=== PATIENT | male | born 1975 | race Caucasian/White ===

== ENCOUNTER 2018-04-27 20:02 | Emergency (ER) | payer OTHER ==
[2018-04-27] MEDS ORDERED: NS 1,000 ML IV ONE ×2 (20:31→21:22)
[2018-04-27 20:37] LABS: PLATELET COUNT 215 10^3/uL (150-400)
--- NOTE | 2018-04-27 22:28 | EDPHY ---
H & P Time Seen by Provider: 04/27/18 20:13 HPI/ROS: CHIEF COMPLAINT: Diarrhea, fever HISTORY OF PRESENT ILLNESS: 42-year-old male presents to the emergency department by vehicle complaining of diarrhea and feeling feverish and chilled since p.m. Today. Patient has had at least 15-20 watery stools today. No blood in his stool. No back pain. He describes diffuse abdominal cramping. No recent travel. No known ill contacts. He also describes headache and diffuse body aches. Denies chest pain or difficulty breathing. Denies neck pain. Denies urinary symptoms. He has tried Imodium multiple times prior to arrival. REVIEW OF SYSTEMS: Constitutional: Subjective fevers, chills Eyes: No double or blurry vision. ENT: No sore throat. Respiratory: No cough, no shortness of breath. Cardiac: No chest pain. Gastrointestinal: Abdominal pain as above. Diarrhea. No vomiting. Genitourinary: No dysuria. Musculoskeletal: No neck or back pain. Skin: No rashes. Neurological: No headache. Past Medical/Surgical History: Negative Social History: and lives in [place] Smoking Status: Never smoked Physical Exam: General Appearance: Alert, no distress. 37.7 temperature. Nontoxic appearing. Eyes: Pupils equal and round. Extraocular motions are all intact. ENT: Mouth: Mucous membranes moist. Respiratory: No wheezing, rhonchi, or rales, lungs are clear to auscultation. Cardiovascular: Regular rate and rhythm. Gastrointestinal: Abdomen is soft. Mild tenderness with patient diffusely to palpate the abdomen. There is no rebound, guarding or masses noted. No CVA tenderness bilaterally. Neurological: Alert and oriented x 3, cranial nerves II through XII grossly intact Skin: Warm and dry, no rashes. Musculoskeletal: Nontender to palpate along the cervical, thoracic or lumbar spine. Neck is supple. Extremities: Full range of motion and no peripheral edema. Psychiatric: Patient is oriented X 3, there is no agitation. Constitutional: Initial Vital Signs Temperature (C) 37.7 C 04/27/18 20:04 Heart Rate 81 04/27/18 20:04 Respiratory Rate 18 04/27/18 20:04 Blood Pressure 100/74 04/27/18 20:04 O2 Sat (%) 96 04/27/18 20:04 O2 Delivery Mode Room Air Allergies/Adverse Reactions: No Known Allergies Allergy (Verified 04/27/18 20:06) Home Medications: Medication Instructions Recorded No Medications [NO HOME 1 ea [facility] 07/12/11 MEDICATIONS] Medical Decision Making ED Course/Re-evaluation: 42-year-old male presents to the emergency department with multiple episodes of diarrhea fever. Laboratory studies reveal normal CBC and chemistries. Patient received IV normal saline. He was feeling better. He had left abdominal cramping. He denied any pain medication including Bentyl. Because the patient has profuse diarrhea with fever, GI pathogen is pending. Patient feels comfortable being discharged home. Differential Diagnosis: Including but not limited to infectious diarrhea, viral gastroenteritis, dehydration, electrolyte abnormality - Data Points Laboratory Results: Laboratory Results 04/27/18 20:27 04/27/18 20:27 04/27/18 04/27/18 20:27 20:27 WBC 12.04 10^3/uL H 10^3/uL (3.80-9.50) RBC 4.82 10^6/uL 10^6/uL (4.40-6.38) Hgb 14.9 g/dL g/dL (13.7-17.5) Hct 41.4 % % (40.0-51.0) MCV 85.9 fL fL (81.5-99.8) MCH 30.9 pg pg (27.9-34.1) MCHC 36.0 g/dL g/dL (32.4-36.7) RDW 12.9 % % (11.5-15.2) Plt Count 215 10^3/uL 10^3/uL (150-400) MPV 9.3 fL fL (8.7-11.7) Neut % (Auto) 89.6 % H % (39.3-74.2) Lymph % (Auto) 3.2 % L % (15.0-45.0) [place] % (Auto) 6.1 % % (4.5-13.0) Eos % (Auto) 0.6 % % (0.6-7.6) Baso % (Auto) 0.2 % L % (0.3-1.7) Nucleat RBC Rel Count 0.0 % % (0.0-0.2) Absolute Neuts (auto) 10.79 10^3/uL H 10^3/uL (1.70-6.50) Absolute Lymphs (auto) 0.39 10^3/uL L 10^3/uL (1.00-3.00) Absolute Monos (auto) 0.73 10^3/uL 10^3/uL (0.30-0.80) Absolute Eos (auto) 0.07 10^3/uL 10^3/uL (0.03-0.40) Absolute Basos (auto) 0.02 10^3/uL 10^3/uL (0.02-0.10) Absolute Nucleated RBC 0.00 10^3/uL 10^3/uL (0-0.01) Immature Gran % 0.3 % % (0.0-1.1) Immature Gran # 0.04 10^3/uL 10^3/uL (0.00-0.10) RBC/WBC/PLT Morphology TNP Platelet Estimate TNP Sodium 140 mEq/L mEq/L (135-145) Potassium 4.0 mEq/L mEq/L (3.3-5.0) Chloride 104 mEq/L mEq/L (97-110) Carbon Dioxide 23 mEq/l mEq/l (22-31) Anion Gap 13 mEq/L mEq/L (8-16) BUN 17 mg/dL mg/dL (7-23) Creatinine 1.0 mg/dL mg/dL (0.7-1.3) Estimated GFR > 60 Glucose 120 mg/dL H mg/dL (70-100) Calcium 9.5 mg/dL mg/dL (8.5-10.4) Medications Given: Discontinued Medications Sodium Chloride (Ns) 1,000 mls @ 0 mls/hr IV ONCE ONE PRN Reason: Wide Open Stop: 04/27/18 20:32 Last Admin: 04/27/18 20:30 Dose: 1,000 mls Sodium Chloride (Ns) 1,000 mls @ 0 mls/hr IV ONCE ONE PRN Reason: Wide Open Stop: 04/27/18 21:23 Last Admin: 04/27/18 21:27 Dose: 1,000 mls Departure - Departure Disposition: Home, Routine, Self-Care Clinical Impression: Diarrhea Qualifiers: Diarrhea type: unspecified type Qualified Code(s): R19.7 - Diarrhea, unspecified Fever Qualifiers: Fever type: unspecified Qualified Code(s): R50.9 - Fever, unspecified Condition: Good Instructions: Fever in Adults (ED), Acute Diarrhea (ED) Additional Instructions: Call [phone] for the results of your stool culture in 48 hr. Return to the emergency department if you develop blood in your stool, increasing pain or if you feel worse in any way. Referrals: Alexa Modi MD [Medical Doctor] - As per Instructions (Primary care provider fabrication lead)
[2018-04-27 22:37] VITALS: BP 111/63
== END 2018-04-27 22:44 | disposition home or self-care (01) ==
DX: R19.7 Diarrhea, unspecified (principal); R50.9 Fever, unspecified